=== PATIENT | male | born 1955 | race Caucasian/White ===

== ENCOUNTER 2022-01-18 11:32 | Outpatient (REF) | payer MEDICARE, OTHER, SELFPAY ==
[2022-01-18 13:51] LABS: Alanine Aminotransferase 44 U/L (0-40); Albumin Level 4.5 g/dL (3.5-5.0); Alkaline Phosphatase 78 U/L (39-117); Anion Gap 15 (12-20); Aspartate Amino Transferase 38 U/L (5-37); Bilirubin Total 0.9 mg/dL (0.0-1.0); Blood Urea Nitrogen 20 mg/dL (9-16); Calcium 9.3 mg/dL (8.4-10.2); Carbon Dioxide 28 mmol/L (22-29); Chloride 102 mmol/L (96-108); Estimated Glomerular Filt Rate > 60; Glucose Fasting 110 mg/dL (60-99); Potassium 4.7 mmol/L (3.3-5.1); Sodium 140 mmol/L (135-145); Total Protein 7.7 g/dL (6.5-8.0)
[2022-01-18 13:59] LABS: Estimated Average Glucose 120 mg/dL; Hemoglobin A1c % 5.8 %
== END 2022-01-18 11:33 | disposition home or self-care (01) ==
LOC: HO.10HDL 11:32
PROVIDERS: Visit Provider Internal Medicine
DX: I10 Essential (primary) hypertension (principal); N20.0 Calculus of kidney; R73.9 Hyperglycemia, unspecified
CPT/HCPCS: 36415; 80053; 83036

== ENCOUNTER → 2023-11-18 09:51 | Outpatient (REF) | payer MEDICARE, OTHER, SELFPAY ==
--- NOTE | 2023-11-18 10:10 | HM_ITS ---
* Total monitoring time 10 days. * Underlying rhythm is sinus with an average rate of 78/Min. * Occasional supraventricular ectopy with a burden of 1.2%. * Rare ventricular ectopy with a burden of 0.6%. Few couplets, trigeminy. Multiple morphologies. * No significant pauses or AV blocks. * Patient marker used in association with sinus tachycardia/supraventricular ectopy. * Stress in patient diary correlates with mild sinus tachycardia/PACs/artifact. MTDD
== END ==
LOC: HO.CARD 09:51
PROVIDERS: PCP Internal Medicine; Visit Provider Internal Medicine
DX: G45.4 Transient global amnesia (principal)
CPT/HCPCS: 93242

== ENCOUNTER → 2023-11-18 10:10 | Outpatient (BNV) | payer MEDICARE, OTHER, SELFPAY | PROVIDERS: PCP Internal Medicine; Visit Provider Internal Medicine | DX: I47.10 Supraventricular tachycardia, unspecified (principal); I49.1 Atrial premature depolarization | CPT/HCPCS: 93244 ==

== ENCOUNTER → 2023-12-23 09:43 | Outpatient (REF) | payer MEDICARE, OTHER, SELFPAY | LOC: HO.SL 09:43 | PROVIDERS: PCP Internal Medicine; Visit Provider Internal Medicine | DX: G47.33 Obstructive sleep apnea (adult) (pediatric) (principal) | CPT/HCPCS: 95806 ==

== ENCOUNTER → 2023-12-23 19:00 | Outpatient (BNV) | payer MEDICARE, OTHER, SELFPAY | PROVIDERS: PCP Internal Medicine; Visit Provider Internal Medicine | DX: G47.33 Obstructive sleep apnea (adult) (pediatric) (principal) | CPT/HCPCS: 95806 ==

== ENCOUNTER 2024-02-11 14:11 | Outpatient (AMB) | payer MEDICARE, OTHER, SELFPAY ==
[2024-02-11 14:37] VITALS: BP 110/72; PULSE 82; O2SAT 95; BMI 37.8
--- NOTE | 2024-02-11 14:37 | A.OFFVIS_ITS ---
Vital Signs 02/11/24 14:37 Height 5 ft 11 in Weight 271 lb 2.697 oz BMI 37.8 BP 110/72 Blood Pressure Location Lt brachial Position Sitting Pulse 82 Pulse Source Pulse Oximeter Pulse Oximetry (%) 95 Oxygen Delivery Method Room Air Intake Visit Reasons: christiano Intake Note: pt is here as a new patient for follow up of sleep study, This all started when he went to ER. pt is on BP med but unsure of name. Wind Energy Mechanic Required: No Allergies lisinopril [LISINOPRIL] Allergy (Severe, Unverified 02/11/24 16:12) ANGIOEDEMA latex [LATEX] Allergy (Unknown, Unverified 02/11/24 16:12) UNKNOWN latex Allergy (Unknown, Uncoded 02/11/24 16:12) swelling gets irritated if he leaves bandaid on for a few da Lisinopril-Hydrochlorothiazide Allergy (Unknown, Uncoded 02/11/24 16:12) angioedema Medication List - Last Reconciled 02/11/24 by Angela Green MD hydrochlorothiazide 25 mg PO DAILY losartan 100 mg PO DAILY tamsulosin (Flomax) 0.8 mg PO BEDTIME Do you need a note to return to daycare/school/sports/work: No HPI HPI christiano: Details: This 69 years old gentleman is being seen for the 1st time because of severe obstructive sleep apnea which needs further management. A few months ago while he was driving from [place] back home, he became somewhat confused and forgetful , while driving. He was checked in an emergency room, kept under observation overnight, he was told that he had transitory global amnesia. When he came back home, his primary care physician ordered a home-based sleep study which was done on 12/23/2023. The results showed that he had severe obstructive sleep apnea with total sleep time AHI 44, it was complicated by hypoxemia with average O2 sat during night b eing 88% and his O2 sat below 88% was for 210 minutes. The recommendation was that he should have CPAP titration study in the sleep lab to determine the optimal pressure and also to make sure that hypoxemia is corrected. There has been some delay in follow-up. Patient was referred. To be seen by me He came today with the expectation that I would just go ahead and order the CPAP. At this time he is fully alert and talking relevantly well. He say is that he does sleep about 6 hours every night but, has to wake up every couple hours the due to frequent urination. He denies any sleepiness during the daytime but does have tendency to feel tired in the afternoons. RETROSPECTIVELY HE HAS HISTORY OF SNORING FOR 5-6 YEARS. NOTED ABOVE HIS SLEEP HAS BEEN FRAGMENTED. HE STAYS ACTIVE DURING THE DAYTIME WORKING FOR A [employer]. HE HAS PUT ON SOME WEIGHT BECAUSE HE HAS BEEN EATING BIG LUNCHES WELL ON SOMETIME LARGE PORTIONS AT THE DINNER. DENIES SMOKING OR . DRINKING EXCEPT FOR THE EPISODE OF GLOBAL AMNESIA DESCRIBED ABOVE HE DENIES ANY OTHER NEUROLOGICAL ISSUES. HE DENIES ANY CHRONIC PULMONARY PROBLEMS. ALSO HAS HAD NO CARDIAC PROBLEMS BUT HE IS BEING TREATED FOR HYPERTENSION. [facility] Medical History (Updated 02/11/24 @ 16:26 by Angela Green MD) Nocturnal hypoxemia CHRISTIANO (obstructive sleep apnea) Obesity (BMI 30-39.9) Social History Patient Tobacco Use Status: Never used Tobacco Review of Systems Const All systems reviewed & are unremarkable except as noted in HPI and below Denies headache(s) and Reports snoring Eyes Reports no additional complaints ENT Reports no additional complaints, Denies vertigo and Denies headache(s) Card Denies chest pain, Denies syncope and Denies leg edema Resp Denies cough, Reports snoring and Denies wheezing GI Reports no additional complaints Reports nocturia Musc Reports no additional complaints Skin/Breast Reports system reviewed and no additional complaints, except as documented Neuro Denies vertigo, Denies syncope and Denies headache(s) Psych Reports no additional complaints Endo Reports no additional complaints Kerwin/Lymph Reports no additional complaints Aller/Immun Reports no additional complaints and Denies wheezing Physical Exam Vital Signs: Last Vital Signs Pulse 82 02/11/24 14:37 BP 110/72 02/11/24 14:37 Pulse Ox 95 02/11/24 14:37 Oxygen Delivery Method Room Air 02/11/24 14:37 BMI result Body Mass Index 37.8 Const General: healthy appearing (EXCEPT BEING OVERWEIGHT), comfortable, no acute distress, alert and awake Orientation/consciousness: patient oriented x3 HEENT Head: Yes normal to inspection General nose exam: No nasal polyps present and No nasal discharge present Face and sinus: Yes sinuses nontender Mouth: oropharynx abnormals (OROPHARYNX IS NARROW AND CROWDED, MALLAMPATI CLASS 4) Throat: Yes posterior oropharynx normal Eyes General: appearance normal, both eyes and all related structures Neck Neck: Yes normal visual inspection, Yes no lymphadenopathy, Yes trachea midline, Yes no JVD and Yes other (NECK CIRCUMFERENCE 17-1/2 INCH) Thyroid: Thyroid normal Chest Chest palpation & inspection: normal inspection of the chest, normal palpation of entire chest wall and no tenderness Resp Effort & Inspection: normal respiratory effort Auscultation: clear to auscultation bilaterally, no rhonchi and no wheezes Cardio Palpation: normal PMI Rate: regular rate Rhythm: regular rhythm Heart sounds: no gallops and no murmurs Peripheral pulses: Peripheral pulses 2+ throughout GI Palpation (GI): Soft to palpation, nontender, No hepatosplenomegaly present and no masses Auscultation: normal bowel sounds Back/Spine/Pelvis Thoracic/Lumbar Spine: thoracic and lumbar spine normal to inspection Skin General skin exam: no rashes or lesions noted Neuro General: patient oriented x3 and no focal motor deficits Cranial nerves: Yes CN's II-XII intact bilaterally Extrem General: Yes normal to inspection, Yes no clubbing, cyanosis or edema and Yes no calf tenderness Psych Speech and movement: Normal speech and movement present Results Reviewed Results Reviewed: HOME-BASED SLEEP STUDY ON 12/23/2023 SHOWED THE FOLLOWING TOTAL SLEEP TIME AHI 44 SNORING FOR 29% OF THE SLEEP TIME. NOCTURNAL HYPOXEMIA WITH AVERAGE O2 SAT 88% AND O2 SAT BELOW 88% FOR 210 MINUTE Assessment & Plan Assessment & Plan (1) Obesity (BMI 30-39.9): Comment: HE IS GROSSLY OBESE. THIS HAS BEEN GOING ON FOR THE PAST MANY YEARS. Code(s): E66.9 - Obesity, unspecified Category: Medical Plan: DISCUSSED ABOUT HIS BEING OVERWEIGHT, DIETARY CONTROL AND NEED FOR REGULAR EXERCISE DISCUSSED. ONCE HIS SLEEP APNEA IS TREATED HE WOULD HAVE MORE ENERGY AND O2 START ON A REGULAR EXERCISE PROGRAM. (2) CHRISTIANO (obstructive sleep apnea): Comment: HE HAS RATHER SEVERE DEGREE OF OBSTRUCTIVE SLEEP APNEA. IT IS COMPLICATED BY SLEEP-RELATED HYPOVENTILATION AND HYPOXEMIA. Code(s): G47.33 - Obstructive sleep apnea (adult) (pediatric) Category: Medical Plan: HE NEEDS TO BE STARTED ON DEFINITE IT TREATMENT SOON POSSIBLE. HOWEVER BECAUSE OF PERSISTENT NOCTURNAL HYPOXEMIA HIS BEST THAT HE SHOULD HAVE CPAP TITRATION STUDY IN THE SLEEP LAB. PATIENT NEEDED LOT OF EXPLANATION AND EDUCATION AFTER WHICH HE AGREED TO UNDERGO THE CPAP TITRATION IN THE SLEEP LAB. (3) Nocturnal hypoxemia: Comment: NOTED ABOVE HE DOES HAVE SIGNIFICANT NOCTURNAL HYPOXEMIA DURING HIS SLEEP. HE DOES NOT HAVE ANY UNDERLYING CHRONIC PULMONARY OR CARDIAC DISEASE Code(s): G47.34 - Idiopathic sleep related nonobstructive alveolar hypoventilation Category: Medical Plan: I THINK ONCE HE STARTS CPAP THERAPY HIS HYPOXEMIA WILL BE TREATED FOR THIS REASON HE WILL HAVE CPAP TITRATION STUDY IN THE SLEEP LAB. PATIENT WAS RELUCTANT. TO GO TO THE SLEEP LAB HOWEVER AFTER PROPER COUNSELING AND EDUCATION HE HAS AGREE TO HAVE THIS DONE. Coding Level of Care Code New Pt Level 4 (09817) Diagnoses Obesity (BMI 30-39.9) E66.9 CHRISTIANO (obstructive sleep apnea) G47.33 Nocturnal hypoxemia G47.34
== END 2024-02-11 15:21 | disposition home or self-care (01) ==
PROVIDERS: PCP Internal Medicine; Visit Provider Internal Medicine
DX: G47.33 Obstructive sleep apnea (adult) (pediatric) (principal); G47.34 Idiopathic sleep related nonobstructive alveolar hypoventilation; E66.9 Obesity, unspecified; Z68.37 Body mass index [BMI] 37.0-37.9, adult
CPT/HCPCS: 99214

== ENCOUNTER → 2024-02-11 14:11 | Outpatient (BNVA) | payer MEDICARE, OTHER, SELFPAY | PROVIDERS: PCP Internal Medicine; Visit Provider Internal Medicine | DX: G47.33 Obstructive sleep apnea (adult) (pediatric) (principal); G47.34 Idiopathic sleep related nonobstructive alveolar hypoventilation; E66.9 Obesity, unspecified; Z68.37 Body mass index [BMI] 37.0-37.9, adult | CPT/HCPCS: 99212 ==

== ENCOUNTER → 2024-02-16 19:30 | Outpatient (BNV) | payer MEDICARE, OTHER, SELFPAY | PROVIDERS: PCP Internal Medicine; Visit Provider Internal Medicine | DX: G47.33 Obstructive sleep apnea (adult) (pediatric) (principal) | CPT/HCPCS: 95811 ==

== ENCOUNTER → 2024-02-16 19:30 | Outpatient (REF) | payer MEDICARE, OTHER, SELFPAY | LOC: HO.SL 19:30 | PROVIDERS: PCP Internal Medicine; Visit Provider Internal Medicine | DX: G47.33 Obstructive sleep apnea (adult) (pediatric) (principal) | CPT/HCPCS: 95811 ==

== ENCOUNTER 2024-05-17 15:48 | Outpatient (AMB) | payer MEDICARE, OTHER, SELFPAY ==
[2024-05-17 15:50] VITALS: BP 112/58; PULSE 82; O2SAT 95; BMI 37.1
--- NOTE | 2024-05-17 15:50 | MHC.OFFVIS ---
Vital Signs 05/17/24 15:50 Height 5 ft 11 in Weight 266 lb 4.334 oz BMI 37.1 BP 112/58 L Blood Pressure Location Rt brachial Position Sitting Pulse 82 Pulse Source Doppler Pulse Oximetry (%) 95 Oxygen Delivery Method Room Air Intake Visit Reasons: christiano Allergies lisinopril [LISINOPRIL] Allergy (Severe, Unverified 05/17/24 16:14) ANGIOEDEMA latex [LATEX] Allergy (Unknown, Unverified 05/17/24 16:14) UNKNOWN latex Allergy (Unknown, Uncoded 05/17/24 16:14) swelling gets irritated if he leaves bandaid on for a few da Lisinopril-Hydrochlorothiazide Allergy (Unknown, Uncoded 05/17/24 16:14) angioedema Medication List - Last Reconciled 05/17/24 by Angela Green MD hydrochlorothiazide 25 mg PO DAILY losartan 100 mg PO DAILY tamsulosin (Flomax) 0.8 mg PO BEDTIME Do you need a note to return to daycare/school/sports/work: No HPI HPI christiano: Details: THIS 69 YEARS OLD VERY PLEASANT GENTLEMAN WITH GROSS OBESITY, BMI= 37.1. RECENTLY DIAGNOSIS OF OBSTRUCTIVE SLEEP APNEA WAS CONFIRMED, HE UNDERWENT CPAP TITRATION STUDY, AND HAS BEEN STARTED ON BIPAP WITH PRESSURE SETTING OF 20/16 CM USING A FULLFACE MASK. HE IS TRYING HIS BEST TO USE THE MASK EVERY NIGHT. HOWEVER HE CAN NOT USE IT FOR MORE THAN 4 HOURS BECAUSE IN THE MIDDLE OF THE NIGHT THE AIR LEAK AND VIBRATIONS OF THE MASK START BOTHERING HIM AND WAKE HIM UP. HE WAS GIVEN FULLFACE MASK OF MEDIUM SIZE, . IT IS NOT FITTING WELL HE IS DESPERATELY LOOKING FOR A BETTER FITTING MASK. OTHERWISE HE HAS BEEN FEELING WELL AND THERE HAS BEEN NO EPISODE OF AMNESIA. HE PLANS TO RETIRE AT THE END OF THIS MONTH, AND THEN WILL DEVOTE MORE TIME IN WALKING AND EXERCISING. [facility] Medical History Nocturnal hypoxemia CHRISTIANO (obstructive sleep apnea) Obesity (BMI 30-39.9) Social History Patient Tobacco Use Status: Never used Tobacco Review of Systems Const All systems reviewed & are unremarkable except as noted in HPI and below Denies headache(s) and Reports snoring Eyes Reports no additional complaints ENT Reports no additional complaints, Denies vertigo and Denies headache(s) Card Denies chest pain, Denies syncope and Denies leg edema Resp Denies cough, Reports snoring and Denies wheezing GI Reports no additional complaints Reports nocturia Musc Reports no additional complaints Skin/Breast Reports system reviewed and no additional complaints, except as documented Neuro Denies vertigo, Denies syncope and Denies headache(s) Psych Reports no additional complaints Endo Reports no additional complaints Kerwin/Lymph Reports no additional complaints Aller/Immun Reports no additional complaints and Denies wheezing Physical Exam Vital Signs: Last Vital Signs Pulse 82 05/17/24 15:50 BP 112/58 L 05/17/24 15:50 Pulse Ox 95 05/17/24 15:50 Oxygen Delivery Method Room Air 05/17/24 15:50 BMI result Body Mass Index 37.1 Const General: healthy appearing (EXCEPT BEING OVERWEIGHT), comfortable, no acute distress, alert and awake Orientation/consciousness: patient oriented x3 HEENT Head: Yes normal to inspection General nose exam: No nasal polyps present and No nasal discharge present Face and sinus: Yes sinuses nontender Mouth: oropharynx abnormals (OROPHARYNX IS NARROW AND CROWDED, MALLAMPATI CLASS 4) Throat: Yes posterior oropharynx normal Eyes General: appearance normal, both eyes and all related structures Neck Neck: Yes normal visual inspection, Yes no lymphadenopathy, Yes trachea midline, Yes no JVD and Yes other (NECK CIRCUMFERENCE 17-1/2 INCH) Thyroid: Thyroid normal Chest Chest palpation & inspection: normal inspection of the chest, normal palpation of entire chest wall and no tenderness Resp Effort & Inspection: normal respiratory effort Auscultation: clear to auscultation bilaterally, no rhonchi and no wheezes Cardio Palpation: normal PMI Rate: regular rate Rhythm: regular rhythm Heart sounds: no gallops and no murmurs Peripheral pulses: Peripheral pulses 2+ throughout GI Palpation (GI): Soft to palpation, nontender, No hepatosplenomegaly present and no masses Auscultation: normal bowel sounds Back/Spine/Pelvis Thoracic/Lumbar Spine: thoracic and lumbar spine normal to inspection Skin General skin exam: no rashes or lesions noted Neuro General: patient oriented x3 and no focal motor deficits Cranial nerves: Yes CN's II-XII intact bilaterally Extrem General: Yes normal to inspection, Yes no clubbing, cyanosis or edema and Yes no calf tenderness Psych Speech and movement: Normal speech and movement present Results Reviewed Results Reviewed: THE RESULTS OF CPAP TITRATION STUDY REVIEWED WITH PATIENT. COMPLIANCE REPORT COULD NOT BE DOWNLOADED . Assessment & Plan Assessment & Plan (1) Obesity (BMI 30-39.9): Comment: HE IS GROSSLY OBESE. THIS HAS BEEN GOING ON FOR THE PAST MANY YEARS. Code(s): E66.9 - Obesity, unspecified Category: Medical Plan: TALKED TO HIM ABOUT THE IMPORTANCE OF LOSING WEIGHT. HE PLANS TO RETIRE AT THE END OF THIS MONTH AND THEN DEVOTE MORE TIME IN WALKING, AND ALSO HE WILL BE ABLE TO AVOID EATING EXTRA AND JUNK TYPE OF FOODS, HE WILL NOT BE TRAVELING MUCH. (2) CHRISTIANO (obstructive sleep apnea): Comment: HE HAS RATHER SEVERE DEGREE OF OBSTRUCTIVE SLEEP APNEA. IT IS COMPLICATED BY SLEEP-RELATED HYPOVENTILATION AND HYPOXEMIA. AFTER CPAP TITRATION STUDY HE HAS BEEN STARTED ON BILEVEL CPAP WITH PRESSURE SETTING OF 20/16 CM. HE IS HAVING PROBLEM WITH THE MASK AND ALSO FEELS THAT THE PRESSURE IS TOO HIGH . Code(s): G47.33 - Obstructive sleep apnea (adult) (pediatric) Category: Medical Plan: ADVISED TO CONTACT THE DME PROVIDER, [facility] AND ATTEND THE WEEKLY CLINIC A FEW TIMES. WE WILL CONTACT [facility] OFFICE AND ADVISE THEM TO PROVIDE HIM A BETTER FITTING FACEMASK , MOST PROBABLY HE WILL DO WELL WITH A DREAMWEAR/ AIRFIT TYPE OF MASK. I DISCUSSED WITH HIM THAT HE HAS TO GO THROUGH SOME LEARNING CURVE, HE HAS TO GET USED TO WEARING THE MASK AND USING BIPAP EVERY NIGHT AT LEAST FOR 4-5 HOURS PER NIGHT. (3) Nocturnal hypoxemia: Comment: NOTED ABOVE HE DOES HAVE SIGNIFICANT NOCTURNAL HYPOXEMIA DURING HIS SLEEP. HE DOES NOT HAVE ANY UNDERLYING CHRONIC PULMONARY OR CARDIAC DISEASE IN THE TITRATION STUDY WITH THE USE OF FACE MASK AND PRESSURE OF 20/16 CM , THERE REMAINED NO RESIDUAL HYPOXEMIA. Code(s): G47.34 - Idiopathic sleep related nonobstructive alveolar hypoventilation Category: Medical Plan: CONTINUED PROPER USE OF THE BIPAP IS NEEDED TO ELIMINATE NOCTURNAL HYPOXEMIA. Coding Level of Care Code Est Pt Level 3 (93268) Diagnoses Obesity (BMI 30-39.9) E66.9 CHRISTIANO (obstructive sleep apnea) G47.33 Nocturnal hypoxemia G47.34
== END 2024-05-17 16:29 | disposition home or self-care (01) ==
PROVIDERS: PCP Internal Medicine; Visit Provider Internal Medicine
DX: E66.9 Obesity, unspecified (principal); G47.33 Obstructive sleep apnea (adult) (pediatric); G47.34 Idiopathic sleep related nonobstructive alveolar hypoventilation
CPT/HCPCS: 99213

== ENCOUNTER → 2024-05-17 15:48 | Outpatient (BNVA) | payer MEDICARE, OTHER, SELFPAY | PROVIDERS: PCP Internal Medicine; Visit Provider Internal Medicine | DX: E66.01 Morbid (severe) obesity due to excess calories (principal); G47.33 Obstructive sleep apnea (adult) (pediatric); G47.34 Idiopathic sleep related nonobstructive alveolar hypoventilation; Z68.37 Body mass index [BMI] 37.0-37.9, adult | CPT/HCPCS: 99212 ==

== ENCOUNTER 2024-07-21 10:07 | Outpatient (AMB) | payer MEDICARE, OTHER, SELFPAY ==
[2024-07-21 10:17] VITALS: BP 130/64; PULSE 51; O2SAT 94; BMI 36.9
--- NOTE | 2024-07-21 10:17 | MHC.OFFVIS ---
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: No Allergies lisinopril [LISINOPRIL] Allergy (Severe, Unverified 07/21/24 10:42) ANGIOEDEMA latex [LATEX] Allergy (Unknown, Unverified 07/21/24 10:42) UNKNOWN latex Allergy (Unknown, Uncoded 07/21/24 10:42) swelling gets irritated if he leaves bandaid on for a few da Lisinopril-Hydrochlorothiazide Allergy (Unknown, Uncoded 07/21/24 10:42) angioedema Medication List - Last Reconciled 07/21/24 by Angela Green MD hydrochlorothiazide 25 mg PO DAILY losartan 100 mg PO DAILY tamsulosin (Flomax) 0.8 mg PO BEDTIME Do you need a note to return to daycare/school/sports/work: No HPI HPI Obstructive sleep apnea: Details: THIS 69 YEARS OLD VERY PLEASANT GENTLEMAN IS A CASE OF OBESITY AND OBSTRUCTIVE SLEEP APNEA, PER HIS INITIAL CPAP TITRATION HE HAS BEEN USING BILEVEL PRESSURES ( BIPAP ) INITIALLY IT WAS 20/18 CM, ON HIS LAST VISIT IT WAS CUT DOWN TO 18/16 CM. HE IS USING CPAP REGULARLY EVERY NIGHT. STILL COMPLAINS THAT HIS MASK IS NOT VERY COMFORTABLE. HE USES FULLFACE MASK OF MEDIUM SIZE, AND DEVELOP SOME DISCOMFORT IN NASAL BRIDGE AREA DURING THE NIGHT. HE ALSO FEELS THAT THE PRESSURE IS STILL LITTLE HIGH AND HE CAN HEAR SOME AIR LEAKAGE. HE IS NOW RETIRED AND DEVOTING MORE TIME FOR WALKING EVERY DAY, HE HAS LOST SOME WEIGHT. [facility] Medical History Nocturnal hypoxemia JESSICA (obstructive sleep apnea) Obesity (BMI 30-39.9) Social History Patient Tobacco Use Status: Never used Tobacco Review of Systems Const All systems reviewed & are unremarkable except as noted in HPI and below Denies headache(s) and Reports snoring Eyes Reports no additional complaints ENT Reports no additional complaints, Denies vertigo and Denies headache(s) Card Denies chest pain, Denies syncope and Denies leg edema Resp Denies cough, Reports snoring and Denies wheezing GI Reports no additional complaints Reports nocturia Musc Reports no additional complaints Skin/Breast Reports system reviewed and no additional complaints, except as documented Neuro Denies vertigo, Denies syncope and Denies headache(s) Psych Reports no additional complaints Endo Reports no additional complaints Kerwin/Lymph Reports no additional complaints Aller/Immun Reports no additional complaints and Denies wheezing Physical Exam Vital Signs: Last Vital Signs Pulse 51 07/21/24 10:17 BP 130/64 07/21/24 10:17 Pulse Ox 94 07/21/24 10:17 Oxygen Delivery Method Room Air 07/21/24 10:17 BMI result Body Mass Index 36.9 Const General: healthy appearing (EXCEPT BEING OVERWEIGHT), comfortable, no acute distress, alert and awake Orientation/consciousness: patient oriented x3 HEENT Head: Yes normal to inspection General nose exam: No nasal polyps present and No nasal discharge present Face and sinus: Yes sinuses nontender Mouth: oropharynx abnormals (OROPHARYNX IS NARROW AND CROWDED, MALLAMPATI CLASS 4) Throat: Yes posterior oropharynx normal Eyes General: appearance normal, both eyes and all related structures Neck Neck: Yes normal visual inspection, Yes no lymphadenopathy, Yes trachea midline, Yes no JVD and Yes other (NECK CIRCUMFERENCE 17-1/2 INCH) Thyroid: Thyroid normal Chest Chest palpation & inspection: normal inspection of the chest, normal palpation of entire chest wall and no tenderness Resp Effort & Inspection: normal respiratory effort Auscultation: clear to auscultation bilaterally, no rhonchi and no wheezes Cardio Palpation: normal PMI Rate: regular rate Rhythm: regular rhythm Heart sounds: no gallops and no murmurs Peripheral pulses: Peripheral pulses 2+ throughout GI Palpation (GI): Soft to palpation, nontender, No hepatosplenomegaly present and no masses Auscultation: normal bowel sounds Back/Spine/Pelvis Thoracic/Lumbar Spine: thoracic and lumbar spine normal to inspection Skin General skin exam: no rashes or lesions noted Neuro General: patient oriented x3 and no focal motor deficits Cranial nerves: Yes CN's II-XII intact bilaterally Extrem General: Yes normal to inspection, Yes no clubbing, cyanosis or edema and Yes no calf tenderness Psych Speech and movement: Normal speech and movement present Results Reviewed Results Reviewed: COMPLIANCE REPORT IS REVIEWED. HE IS VERY COMPLIANT AND HAS USED 100% OF THE NIGHTS. AVERAGE USE IT PER NIGHT 5 HOURS 19 MINUTES. HE IS ON BILEVEL PRESSURE OF 18/16 CM. THERE IS MILD TO MODERATE DEGREE OF AIR LEAK. RESIDUAL AHI 1.3 Assessment & Plan Assessment & Plan (1) Obesity (BMI 30-39.9): Comment: HE IS GROSSLY OBESE. THIS HAS BEEN GOING ON FOR THE PAST MANY YEARS. NOW THAT HE IS RETIRED HE IS TRYING TO WALK MORE, AND IS LOSING WEIGHT SLOWLY. Code(s): E66.9 - Obesity, unspecified Category: Medical Plan: ENCOURAGED TO WALK ABOUT 2 MILES EVERY DAY, DISCUSSED ABOUT THE DIET, AND ENCOURAGED TO KEEP ON LOSING MORE WEIGHT. (2) Nocturnal hypoxemia: Comment: NOTED ABOVE HE DID HAVE SIGNIFICANT NOCTURNAL HYPOXEMIA DURING HIS SLEEP. HE DOES NOT HAVE ANY UNDERLYING CHRONIC PULMONARY OR CARDIAC DISEASE IN THE TITRATION STUDY WITH THE USE OF FACE MASK AND PRESSURE OF 20/16 CM , THE HYPOXEMIA HAD COMPLETELY RESOLVED. Code(s): G47.34 - Idiopathic sleep related nonobstructive alveolar hypoventilation Category: Medical Plan: NO NEED OF SUPPLEMENTAL OXYGEN (3) JESSICA (obstructive sleep apnea): Comment: HE HAS RATHER SEVERE DEGREE OF OBSTRUCTIVE SLEEP APNEA. IT IS COMPLICATED BY SLEEP-RELATED HYPOVENTILATION AND HYPOXEMIA. AFTER CPAP TITRATION STUDY HE HAS BEEN STARTED ON BILEVEL CPAP WITH PRESSURE SETTING OF 20/16 CM. HE IS HAVING PROBLEM WITH THE MASK AND ALSO FEELS THAT THE PRESSURE IS TOO HIGH . ON HIS LAST VISIT PRESSURE WAS REDUCED TO 18/16 CM, . HE STILL THINKS IS TOO HIGH Code(s): G47.33 - Obstructive sleep apnea (adult) (pediatric) Category: Medical Plan: WILL SEND AN ORDER FOR A NEW FULLFACE MASK OF MEDIUM SIZE WITH FORM LINING . WILL REDUCE THE PRESSURE DOWN TO 16/12 CM Coding Level of Care Code Est Pt Level 3 (58311) Diagnoses Obesity (BMI 30-39.9) E66.9 Nocturnal hypoxemia G47.34 JESSICA (obstructive sleep apnea) G47.33
== END 2024-07-21 10:43 | disposition home or self-care (01) ==
PROVIDERS: PCP Internal Medicine; Visit Provider Internal Medicine
DX: E66.9 Obesity, unspecified (principal); G47.34 Idiopathic sleep related nonobstructive alveolar hypoventilation; G47.33 Obstructive sleep apnea (adult) (pediatric)
CPT/HCPCS: 99213

== ENCOUNTER → 2024-07-21 10:07 | Outpatient (BNVA) | payer MEDICARE, OTHER, SELFPAY | PROVIDERS: PCP Internal Medicine; Visit Provider Internal Medicine | DX: G47.33 Obstructive sleep apnea (adult) (pediatric) (principal); E66.9 Obesity, unspecified; G47.34 Idiopathic sleep related nonobstructive alveolar hypoventilation; Z99.89 Dependence on other enabling machines and devices; Z68.36 Body mass index [BMI] 36.0-36.9, adult | CPT/HCPCS: 99212 ==

== ENCOUNTER 2024-10-20 10:12 | Outpatient (AMB) | payer MEDICARE, OTHER, SELFPAY ==
--- NOTE | 2024-10-20 10:24 | MHC.OFFVIS ---
Vital Signs 10/20/24 10:25 Height 5 ft 11 in Weight 263 lb 7.238 oz BMI 36.7 BP 120/80 Blood Pressure Location Lt brachial Position Sitting Pulse 51 Pulse Source Pulse Oximeter Pulse Oximetry (%) 96 Oxygen Delivery Method Room Air Intake Visit Reasons: Obstructive sleep apnea Intake Note: pt is here for christiano follow up Dental Hygienist Mobile Coordinator Required: No Allergies lisinopril [LISINOPRIL] Allergy (Severe, Unverified 10/20/24 10:34) ANGIOEDEMA latex [LATEX] Allergy (Unknown, Unverified 10/20/24 10:34) UNKNOWN latex Allergy (Unknown, Uncoded 10/20/24 10:34) swelling gets irritated if he leaves bandaid on for a few da Lisinopril-Hydrochlorothiazide Allergy (Unknown, Uncoded 10/20/24 10:34) angioedema Medication List - Last Reconciled 10/20/24 by Angela Grene MD hydrochlorothiazide 25 mg PO DAILY losartan 100 mg PO DAILY tamsulosin (Flomax) 0.8 mg PO BEDTIME Do you need a note to return to daycare/school/sports/work: No HPI HPI Obstructive sleep apnea: Details: THIS 69 YEARS OLD GENTLEMAN WITH GROSS OBESITY AND OBSTRUCTIVE SLEEP APNEA IS HERE FOR 4 MONTHS FOLLOW-UP. ON HIS LAST VISIT WE DOWN ADJUSTED THE PRESSURE TO 16/12 CM, AND HE FINDS IT MORE COMFORTABLE. THE CURRENT FULLFACE MASK WITH GOOD LINING HAS BEEN MORE COMFORTABLE FOR HIM. HE HAS BEEN USING THE CPAP EVERY NIGHT SLEEPING ABOUT 4-5 HOURS PER NIGHT. HIS SLEEP GETS INTERRUPTED BECAUSE OF BPH AND URGE TO GO TO THE BATHROOM. BUT HE DENIES ANY DAYTIME SLEEPINESS. HE DOES WALK DAILY BUT HAS NOT BEEN ABLE TO LOSE MUCH WEIGHT. [facility] Medical History Nocturnal hypoxemia CHRISTIANO (obstructive sleep apnea) Obesity (BMI 30-39.9) Social History Patient Tobacco Use Status: Never used Tobacco Review of Systems Const All systems reviewed & are unremarkable except as noted in HPI and below Denies headache(s) and Reports snoring Eyes Reports no additional complaints ENT Reports no additional complaints, Denies vertigo and Denies headache(s) Card Denies chest pain, Denies syncope and Denies leg edema Resp Denies cough, Reports snoring and Denies wheezing GI Reports no additional complaints Reports nocturia Musc Reports no additional complaints Skin/Breast Reports system reviewed and no additional complaints, except as documented Neuro Denies vertigo, Denies syncope and Denies headache(s) Psych Reports no additional complaints Endo Reports no additional complaints Kerwin/Lymph Reports no additional complaints Aller/Immun Reports no additional complaints and Denies wheezing Physical Exam Vital Signs: Last Vital Signs Pulse 51 10/20/24 10:25 BP 120/80 10/20/24 10:25 Pulse Ox 96 10/20/24 10:25 Oxygen Delivery Method Room Air 10/20/24 10:25 BMI result Body Mass Index 36.7 Const General: healthy appearing (EXCEPT BEING OVERWEIGHT), comfortable, no acute distress, alert and awake Orientation/consciousness: patient oriented x3 HEENT Head: Yes normal to inspection General nose exam: No nasal polyps present and No nasal discharge present Face and sinus: Yes sinuses nontender Mouth: oropharynx abnormals (OROPHARYNX IS NARROW AND CROWDED, MALLAMPATI CLASS 4) Throat: Yes posterior oropharynx normal Eyes General: appearance normal, both eyes and all related structures Neck Neck: Yes normal visual inspection, Yes no lymphadenopathy, Yes trachea midline, Yes no JVD and Yes other (NECK CIRCUMFERENCE 17-1/2 INCH) Thyroid: Thyroid normal Chest Chest palpation & inspection: normal inspection of the chest, normal palpation of entire chest wall and no tenderness Resp Effort & Inspection: normal respiratory effort Auscultation: clear to auscultation bilaterally, no rhonchi and no wheezes Cardio Palpation: normal PMI Rate: regular rate Rhythm: regular rhythm Heart sounds: no gallops and no murmurs Peripheral pulses: Peripheral pulses 2+ throughout GI Palpation (GI): Soft to palpation, nontender, No hepatosplenomegaly present and no masses Auscultation: normal bowel sounds Back/Spine/Pelvis Thoracic/Lumbar Spine: thoracic and lumbar spine normal to inspection Skin General skin exam: no rashes or lesions noted Neuro General: patient oriented x3 and no focal motor deficits Cranial nerves: Yes CN's II-XII intact bilaterally Extrem General: Yes normal to inspection, Yes no clubbing, cyanosis or edema and Yes no calf tenderness Psych Speech and movement: Normal speech and movement present Results Reviewed Results Reviewed: COMPLIANCE REPORT FOR THE LAST 30 NIGHTS IS REVIEWED. HE HAS USED 100% OF THE NIGHTS. AVERAGE USE IT PER NIGHT IS 5 HOURS 28 MINUTES. NO SIGNIFICANT AIR LEAK NOTED. RESIDUAL AHI 0.7 Assessment & Plan Assessment & Plan (1) CHRISTIANO (obstructive sleep apnea): Comment: HE HAS RATHER SEVERE DEGREE OF OBSTRUCTIVE SLEEP APNEA. IT IS COMPLICATED BY SLEEP-RELATED HYPOVENTILATION AND HYPOXEMIA. AFTER CPAP TITRATION STUDY HE HAS BEEN STARTED ON BILEVEL CPAP WITH PRESSURE SETTING OF 20/16 CM.. THE PRESSURE NOW DOWN TO 16/12 CM HE FEELS MORE COMFORTABLE WITH THIS PRESSURE. HIS COMPLIANCE IS EXCELLENT WITH GOOD RESULTS. Code(s): G47.33 - Obstructive sleep apnea (adult) (pediatric) Category: Medical Plan: COMMENDED FOR GOOD COMPLIANCE AND ADVISED TO KEEP ON USING BILEVEL CPAP EVERY NIGHT. (2) Nocturnal hypoxemia: Comment: NOTED ABOVE HE DID HAVE SIGNIFICANT NOCTURNAL HYPOXEMIA DURING HIS SLEEP. HE DOES NOT HAVE ANY UNDERLYING CHRONIC PULMONARY OR CARDIAC DISEASE IN THE TITRATION STUDY WITH THE USE OF FACE MASK AND PRESSURE OF 20/16 CM , THE HYPOXEMIA HAD COMPLETELY RESOLVED. Code(s): G47.34 - Idiopathic sleep related nonobstructive alveolar hypoventilation Category: Medical Plan: SO THERE IS NO NEED TO PUT HIM ON ANY O2 SUPPLEMENTATION. (3) Obesity (BMI 30-39.9): Comment: HE IS GROSSLY OBESE. THIS HAS BEEN GOING ON FOR THE PAST MANY YEARS. NOW THAT HE IS RETIRED HE IS TRYING TO WALK MORE, AND IS LOSING WEIGHT SLOWLY. Code(s): E66.9 - Obesity, unspecified Category: Medical Plan: AGAIN DISCUSSED ABOUT NEED TO CONTROL HIS DIET AND ALSO DO DAILY EXERCISES SUCH BRISK WALKING. Coding Level of Care Code Est Pt Level 3 (20009) Diagnoses CHRISTIANO (obstructive sleep apnea) G47.33 Nocturnal hypoxemia G47.34 Obesity (BMI 30-39.9) E66.9
[2024-10-20 10:25] VITALS: BP 120/80; PULSE 51; O2SAT 96; BMI 36.7
== END 2024-10-20 10:47 | disposition home or self-care (01) ==
LOC: HO.HPS 10:13
PROVIDERS: PCP Internal Medicine; Visit Provider Internal Medicine
DX: G47.33 Obstructive sleep apnea (adult) (pediatric) (principal); G47.34 Idiopathic sleep related nonobstructive alveolar hypoventilation; E66.9 Obesity, unspecified
CPT/HCPCS: 99213

== ENCOUNTER → 2024-10-20 10:12 | Outpatient (BNVA) | payer MEDICARE, OTHER, SELFPAY | PROVIDERS: PCP Internal Medicine; Visit Provider Internal Medicine | DX: G47.33 Obstructive sleep apnea (adult) (pediatric) (principal); G47.34 Idiopathic sleep related nonobstructive alveolar hypoventilation; E66.9 Obesity, unspecified; Z68.36 Body mass index [BMI] 36.0-36.9, adult | CPT/HCPCS: 99212 ==

== ENCOUNTER 2025-02-08 09:43 | Outpatient (AMB) | payer MEDICARE, OTHER, SELFPAY ==
--- NOTE | 2025-02-08 09:48 | MHC.OFFVIS ---
Vital Signs 02/08/25 09:49 Height 5 ft 11 in Weight 267 lb 13.786 oz BMI 37.4 BP 140/70 H Blood Pressure Location Lt brachial Position Sitting Pulse 53 Pulse Source Pulse Oximeter Pulse Oximetry (%) 95 Oxygen Delivery Method Room Air Intake Visit Reasons: Obstructive sleep apnea Intake Note: pt is here for follow up of JESSICA and states he wakes up with air leaks. Harvest Worker Required: No Allergies lisinopril (LISINOPRIL) Allergy (Severe, Unverified 02/08/25 10:11) ANGIOEDEMA latex (LATEX) Allergy (Unknown, Unverified 02/08/25 10:11) UNKNOWN latex Allergy (Unknown, Uncoded 02/08/25 10:11) swelling gets irritated if he leaves bandaid on for a few da Lisinopril-Hydrochlorothiazide Allergy (Unknown, Uncoded 02/08/25 10:11) angioedema Medication List - Last Reconciled 02/08/25 by Angela Green MD hydrochlorothiazide 25 mg PO DAILY losartan 100 mg PO DAILY tamsulosin (Flomax) 0.8 mg PO BEDTIME Do you need a note to return to daycare/school/sports/work: No HPI HPI Obstructive sleep apnea: Details: Valentino is 70 years old gentleman, retired , moderately obese, case of obstructive sleep apnea, comes for his 6 months follow-up. He is being treated for hypertension, as well as BPH. Complains of edema around the ankles especially in the afternoon, and also complains of brief lightheadedness when he stands up. Because of BPH he wakes up about once per night. To go to the bathroom He is now walking 2-3 miles every day. Trying to watch his diet but has not been able to lose much weight. He is due to see his primary care physician, for blood pressure checkup and for having complete lab tests. As far as CPAP is concerned he uses it religiously every night and sleeps good. He feels that there is some air leak but his compliance report does not show any significant leakage. [facility], [facility] Medical History Nocturnal hypoxemia JESSICA (obstructive sleep apnea) Obesity (BMI 30-39.9) Social History Patient Tobacco Use Status: Never used Tobacco Review of Systems Const All systems reviewed & are unremarkable except as noted in HPI and below Denies headache(s) and Reports snoring Eyes Reports no additional complaints ENT Reports no additional complaints, Denies vertigo and Denies headache(s) Card Denies chest pain, Denies syncope and Denies leg edema Resp Denies cough, Reports snoring and Denies wheezing GI Reports no additional complaints Reports nocturia Musc Reports no additional complaints Skin/Breast Reports system reviewed and no additional complaints, except as documented Neuro Denies vertigo, Denies syncope and Denies headache(s) Psych Reports no additional complaints Endo Reports no additional complaints Kerwin/Lymph Reports no additional complaints Aller/Immun Reports no additional complaints and Denies wheezing Physical Exam Vital Signs: Last Vital Signs Pulse 53 02/08/25 09:49 BP 140/70 H 02/08/25 09:49 Pulse Ox 95 02/08/25 09:49 Oxygen Delivery Method Room Air 02/08/25 09:49 BMI result Body Mass Index 37.4 Const General: healthy appearing (EXCEPT BEING OVERWEIGHT), comfortable, no acute distress, alert and awake Orientation/consciousness: patient oriented x3 HEENT Head: Yes normal to inspection General nose exam: No nasal polyps present and No nasal discharge present Face and sinus: Yes sinuses nontender Mouth: oropharynx abnormals (OROPHARYNX IS NARROW AND CROWDED, MALLAMPATI CLASS 4) Throat: Yes posterior oropharynx normal Eyes General: appearance normal, both eyes and all related structures Neck Neck: Yes normal visual inspection, Yes no lymphadenopathy, Yes trachea midline, Yes no JVD and Yes other (NECK CIRCUMFERENCE 17-1/2 INCH) Thyroid: Thyroid normal Chest Chest palpation & inspection: normal inspection of the chest, normal palpation of entire chest wall and no tenderness Resp Effort & Inspection: normal respiratory effort Auscultation: clear to auscultation bilaterally, no rhonchi and no wheezes Cardio Palpation: normal PMI Rate: regular rate Rhythm: regular rhythm Heart sounds: no gallops and no murmurs Peripheral pulses: Peripheral pulses 2+ throughout GI Palpation (GI): Soft to palpation, nontender, No hepatosplenomegaly present and no masses Auscultation: normal bowel sounds Back/Spine/Pelvis Thoracic/Lumbar Spine: thoracic and lumbar spine normal to inspection Skin General skin exam: no rashes or lesions noted Neuro General: patient oriented x3 and no focal motor deficits Cranial nerves: Yes CN's II-XII intact bilaterally Extrem General: Yes normal to inspection, Yes no clubbing, cyanosis or edema, Yes no calf tenderness and Yes edema (There is a trace of pitting a rim around the lower 1/2 of the legs) Psych Appearance: grossly normal and well kempt Speech and movement: Normal speech and movement present Results Reviewed Results Reviewed: Compliance report shows that he has used 30/30 nights with pressure setting of 16/12 cm. Average use it per night 5 hours 21 minutes. There is no significant air leak and residual AHI 0.3. Assessment & Plan Assessment & Plan (1) Obesity (BMI 30-39.9): Comment: HE IS GROSSLY OBESE. THIS HAS BEEN GOING ON FOR THE PAST MANY YEARS. NOW THAT HE IS RETIRED HE IS TRYING TO WALK MORE, AND IS TRYING TO LOSE WEIGHT SLOWLY. Code(s): E66.9 - Obesity, unspecified Category: Medical Plan: ENCOURAGED TO KEEP ON WALKING ABOUT 3 MILES DAILY AND ALSO TRY TO LIMIT THE CALORIES INTAKE. (2) JESSICA (obstructive sleep apnea): Comment: HE HAS RATHER SEVERE DEGREE OF OBSTRUCTIVE SLEEP APNEA. IT IS COMPLICATED BY SLEEP-RELATED HYPOVENTILATION AND HYPOXEMIA. AFTER CPAP TITRATION STUDY HE HAS BEEN STARTED ON BILEVEL CPAP WITH PRESSURE SETTING OF 20/16 CM.. THE PRESSURE NOW DOWN TO 16/12 CM HE FEELS MORE COMFORTABLE WITH THIS PRESSURE. HIS COMPLIANCE IS EXCELLENT WITH GOOD RESULTS. Code(s): G47.33 - Obstructive sleep apnea (adult) (pediatric) Category: Medical Plan: COMMENDED FOR GOOD COMPLIANCE AND ADVISED TO CONTINUE USING CPAP REGULARLY . (3) Nocturnal hypoxemia: Comment: NOTED ABOVE HE DID HAVE SIGNIFICANT NOCTURNAL HYPOXEMIA DURING HIS SLEEP. HE DOES NOT HAVE ANY UNDERLYING CHRONIC PULMONARY OR CARDIAC DISEASE IN THE TITRATION STUDY WITH THE USE OF FACE MASK AND PRESSURE OF 20/16 CM , THE HYPOXEMIA HAD COMPLETELY RESOLVED. Code(s): G47.34 - Idiopathic sleep related nonobstructive alveolar hypoventilation Category: Medical Plan: THERE IS NO NEED OF ADDING OXYGEN TO THE CPAP . Coding Level of Care Code Est Pt Level 3 (33067) Diagnoses Obesity (BMI 30-39.9) E66.9 JESSICA (obstructive sleep apnea) G47.33 Nocturnal hypoxemia G47.34
[2025-02-08 09:49] VITALS: BP 140/70; PULSE 53; O2SAT 95; BMI 37.4
== END 2025-02-08 10:11 | disposition home or self-care (01) ==
LOC: HO.HPS 09:43
PROVIDERS: PCP Internal Medicine; Visit Provider Internal Medicine
DX: E66.9 Obesity, unspecified (principal); G47.33 Obstructive sleep apnea (adult) (pediatric); G47.34 Idiopathic sleep related nonobstructive alveolar hypoventilation
CPT/HCPCS: 99213

== ENCOUNTER → 2025-02-08 09:43 | Outpatient (BNVA) | payer MEDICARE, OTHER, SELFPAY | PROVIDERS: PCP Internal Medicine; Visit Provider Internal Medicine | DX: G47.34 Idiopathic sleep related nonobstructive alveolar hypoventilation (principal); G47.33 Obstructive sleep apnea (adult) (pediatric); Z99.89 Dependence on other enabling machines and devices; E66.9 Obesity, unspecified; Z68.37 Body mass index [BMI] 37.0-37.9, adult | CPT/HCPCS: 99212 ==

== ENCOUNTER 2025-02-22 13:05 | Outpatient (AMB) | payer MEDICARE, OTHER, SELFPAY ==
--- NOTE | 2025-02-22 13:05 | MHC.PC.OV ---
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 Accompanied by: Spouse Allergies lisinopril (LISINOPRIL) Allergy (Severe, Unverified 02/22/25 13:05) ANGIOEDEMA latex (LATEX) Allergy (Unknown, Unverified 02/22/25 13:05) UNKNOWN latex Allergy (Unknown, Uncoded 02/22/25 13:05) swelling gets irritated if he leaves bandaid on for a few da Lisinopril-Hydrochlorothiazide Allergy (Unknown, Uncoded 02/22/25 13:05) angioedema Tobacco use date assessed: 02/22/25 Fall risk assessment: No Falls in past year Last assessed Fall Risk: 02/22/25 Dental Screening Dental Screen Date: 02/22/25 Did you have a dental visit in the last 12 months?: Yes Did you have a dental problem in the last 6 months where you did not have access to dental care?: No Was dental information given to patient?: No HPI HPI Comments History of Present Illness Details 70 year old male with history of JESSICA, HTN, BPH presents to to the office for management of chronic conditions and to establish care. JESSICA- compliant with CPAP. Follows with Dr. Green. [employer] Amnesia- hospitalized at [place]. Imaging negative. Very stressful job, decreased job, long work day which was thought to be the cause. Could not remember this or 's [place] [facility]. Memory did return overall, but does now have recollection of the event. HTN- no longer on meds, bp controlled BPH- lowed dose to 0.4mg due to dizziness. Now toleratign well Concerns: After driving a while, changing position got lightheadedness. Lowered flomax to 0.4mg Low back pain, was entering basement, hunched over. Mild in nature overall Health Maintenance: Due for colonoscopy, every 5 years, [address] Villa ROS: General: No fevers, malaise, unintentional weight loss HEENT: No blurred vision, diplopia. No sore throat, nasal congestion, rhinorrhea, sinus pain, ear pain Cardiovascular: No chest pain, palpitations, or leg edema Respiratory: No shortness of breath, wheezing, cough GI: No abdominal pain, nausea, vomiting, diarrhea, constipation, melena, hematochezia : No dysuria, hematuria, increased urinary frequency, decreased urinary output MSK: No myalgia, back pain Neuro: No headaches, weakness, paresthesias Skin: No rashes or lesions EXAM: Constitutional - Awake and Alert, No apparent distress Eyes - PERRL Cardiovascular - S1S2, RRR, No edema Respiratory - Normal lung expansion, Normal respiratory effort, No respiratory distress, CTA bilaterally Extremities - no calf tenderness bilaterally, no swelling Skin - Warm/Dry Neurological - Alert & oriented x3 Psychological - Appropriate affect [facility] Medical History (Updated 02/26/25 @ 17:25 by THOMAS Day) BPH (benign prostatic hyperplasia) Nocturnal hypoxemia JESSICA (obstructive sleep apnea) Obesity (BMI 30-39.9) Surgical History (Updated 02/22/25 @ 13:53 by THOMAS Day) Hx of lithotripsy Social History Housing: House Patient Tobacco Use Status: Never used Tobacco e-Cigarette/Vaping Use: Never Used service: Yes Current occupational status: retired Cognitive needs: No Hearing needs: No Vision needs: Yes (Reading glasses) Questionnaire PHQ-9 Over the last 2 weeks, how often have you been bothered by any of the following problems? 1. Little interest or pleasure in doing things: not at all 2. Feeling down, depressed, or hopeless: not at all 3. Trouble falling or staying asleep, or sleeping too much: not at all 4. Feeling tired or having little energy: not at all 5. Poor appetite or overeating: not at all 6. Feeling bad about yourself - or that you are a failure or have let yourself or your family down: not at all 7. Trouble concentrating on things, such as reading the newspaper or watching television: not at all 8. Moving or speaking so slowly that other people could have noticed. Or the opposite - being so fidgety or restless that you have been moving around a lot more than usual: not at all 9. Thoughts that you would be better off or of hurting yourself in some way: not at all Total score: 0 Source: Developed by Drs. Bret Valverde, Marisa Williamson, Porfirio Weiner and colleagues, with an educational andree from [employer]. Thrive Questionnaire Date Thrive assessed: 02/22/25 I am a: Patient What is your living situation today?: I have a steady place to live Within the past 12 months, did the food you bought not last and you didn't have the money to get more?: Never true Within the past 12 months, did you worry whether your food would run out before you got money to buy more?: Never true Do you have trouble paying for medicines?: No Do you have trouble getting transportation to medical appointments?: No Do you have trouble paying your heating and electricity bill?: No Do you have trouble taking care of your child, family member or friend?: No Do you have trouble with day-to-day activities such as bathing, preparing meals, shopping, managing finances, etc.?: No Are you currently unemployed and looking for a job?: No Are you interested in more education?: No Please select the resources that you would like help with: None THRIVE Score: 0 GILA-7 AMB Questionnaire GILA-7 Date GILA - 7 assessed: 02/22/25 Feeling nervous, anxious, or on edge: 0 = Not at all Not being able to stop or control worryin = Not at all Worrying too much about different things: 0 = Not at all Trouble relaxin = Not at all Being so restless that it is hard to sit still: 0 = Not at all Becoming easily annoyed or irritable: 0 = Not at all Feeling afraid as if something awful might happen: 0 = Not at all Total GILA-7 score (0-4 normal; 5-9 mild; 10-14 moderate; 15-21 severe): 0 Source: Developed by Drs. Bret Valverde, Marisa Williamson, Porfirio Weiner and colleagues, with an educational andree from [employer]. Physical exam (Primary Care) Vital Signs: Last Vital Signs Temp 97.5 F 02/22/25 13:19 Pulse 57 02/22/25 13:19 Resp 16 02/22/25 13:19 BP 122/68 02/22/25 13:19 Pulse Ox 96 02/22/25 13:19 Oxygen Delivery Method Room Air 02/22/25 13:19 BMI result Body Mass Index 28.9 Tobacco/Smoking Status: Tobacco use Status Tobacco use date assessed 02/22/25 02/22/25 13:22 Patient Tobacco Use Status Never used Tobacco 02/22/25 13:06 e-Cigarette/Vaping Use Never Used 02/22/25 13:22 PHQ-9: PHQ-9 Score PHQ-9: Total score 0 02/22/25 13:38 Thrive Assessment: Date of Thrive Assessment Date Thrive assessed 02/22/25 02/22/25 13:22 Coding Level of Care Code New Pt Level 4 (63106) Complex EM visit Add On G2211 Diagnoses HTN (hypertension) I10 HLD (hyperlipidemia) E78.5 JESSICA (obstructive sleep apnea) G47.33 Obesity (BMI 30-39.9) E66.9 BPH (benign prostatic hyperplasia) N40.0 Assessment & Plan Assessment & Plan (1) HTN (hypertension): Code(s): I10 - Essential (primary) hypertension Category: Medical Plan: Controlled. monitor (2) HLD (hyperlipidemia): Code(s): E78.5 - Hyperlipidemia, unspecified Category: Medical Plan: Lipid panel ordered, ASCVD risk score to be calculated (3) JESSICA (obstructive sleep apnea): Comment: HE HAS RATHER SEVERE DEGREE OF OBSTRUCTIVE SLEEP APNEA. IT IS COMPLICATED BY SLEEP-RELATED HYPOVENTILATION AND HYPOXEMIA. AFTER CPAP TITRATION STUDY HE HAS BEEN STARTED ON BILEVEL CPAP WITH PRESSURE SETTING OF 20/16 CM.. THE PRESSURE NOW DOWN TO 16/12 CM HE FEELS MORE COMFORTABLE WITH THIS PRESSURE. HIS COMPLIANCE IS EXCELLENT WITH GOOD RESULTS. Code(s): G47.33 - Obstructive sleep apnea (adult) (pediatric) Category: Medical Plan: Continue cpap and follow up with pulmonology (4) Obesity (BMI 30-39.9): Comment: HE IS GROSSLY OBESE. THIS HAS BEEN GOING ON FOR THE PAST MANY YEARS. NOW THAT HE IS RETIRED HE IS TRYING TO WALK MORE, AND IS TRYING TO LOSE WEIGHT SLOWLY. Code(s): E66.9 - Obesity, unspecified Category: Medical Plan: Continue weight loss efforts (5) BPH (benign prostatic hyperplasia): Code(s): N40.0 - Benign prostatic hyperplasia without lower urinary tract symptoms Category: Medical Plan: continue reduced dose of flomax Plan Follow up in 6 months, labs to be completed following visit Orders: Orders Complete Blood Count Auto Diff 02/22/25 E66.9 - Obesity, unspecified, E78.5 - Hyperlipidemia, unspecified, G47.33 - Obstructive sleep apnea (adult) (pediatric), I10 - Essential (primary) hypertension Lipid Panel 02/22/25 E66.9 - Obesity, unspecified, E78.5 - Hyperlipidemia, unspecified, G47.33 - Obstructive sleep apnea (adult) (pediatric), I10 - Essential (primary) hypertension Liver Panel 02/22/25 E66.9 - Obesity, unspecified, E78.5 - Hyperlipidemia, unspecified, G47.33 - Obstructive sleep apnea (adult) (pediatric), I10 - Essential (primary) hypertension Basic Metabolic Panel 02/22/25 E66.9 - Obesity, unspecified, E78.5 - Hyperlipidemia, unspecified, G47.33 - Obstructive sleep apnea (adult) (pediatric), I10 - Essential (primary) hypertension Hemoglobin A1c 02/22/25 E66.9 - Obesity, unspecified, E78.5 - Hyperlipidemia, unspecified, G47.33 - Obstructive sleep apnea (adult) (pediatric), I10 - Essential (primary) hypertension Prostate Specific Antigen 02/22/25 E66.9 - Obesity, unspecified, E78.5 - Hyperlipidemia, unspecified, G47.33 - Obstructive sleep apnea (adult) (pediatric), I10 - Essential (primary) hypertension Medications: Discontinued losartan Discontinued Reason: Doctor's Order 100 mg PO DAILY 90 tabs 1RF hydrochlorothiazide Discontinued Reason: Doctor's Order 25 mg PO DAILY 90 tabs 1RF
[2025-02-22 13:19] VITALS: BP 122/68; PULSE 57; RESP 16; TEMP 36.4; O2SAT 96; BMI 28.9
== END 2025-02-22 14:09 | disposition home or self-care (01) ==
LOC: HO.HMCHD 13:06
PROVIDERS: PCP Internal Medicine; Visit Provider Physician Assistant
DX: I10 Essential (primary) hypertension (principal); E78.5 Hyperlipidemia, unspecified; G47.33 Obstructive sleep apnea (adult) (pediatric); E66.9 Obesity, unspecified; N40.0 Benign prostatic hyperplasia without lower urinary tract symptoms

== ENCOUNTER → 2025-02-22 13:05 | Outpatient (BNVA) | payer MEDICARE, OTHER, SELFPAY | PROVIDERS: PCP Internal Medicine; Visit Provider Physician Assistant | DX: I10 Essential (primary) hypertension (principal); E78.5 Hyperlipidemia, unspecified; G47.33 Obstructive sleep apnea (adult) (pediatric); E66.9 Obesity, unspecified; Z68.28 Body mass index [BMI] 28.0-28.9, adult; N40.0 Benign prostatic hyperplasia without lower urinary tract symptoms; Z99.89 Dependence on other enabling machines and devices; Z13.30 Encounter for screening examination for mental health and behavioral disorders, unspecified; Z13.39 Encounter for screening examination for other mental health and behavioral disorders | CPT/HCPCS: 96127; 99202 ==

== ENCOUNTER 2025-03-09 10:15 | Outpatient (REF) | payer MEDICARE, OTHER, SELFPAY ==
[2025-03-09 11:25] LABS: MANUAL DIFF FLAG NO
[2025-03-09 11:40] LABS: Hematocrit 46.9 % (42.0-52.0); Hemoglobin 15.7 g/dl (14.0-18.0); Imm Gran Abs Auto 0.01 X10*3/uL (0.00-0.03); Imm Gran Pct Auto 0.2 % (0.0-0.4); Lymphocytes Absolute Auto 1.3 X10*3/uL (1.2-4.9); Mean Corpuscular HGB Conc 33.5 g/dl (31.0-36.0); Mean Corpuscular Hemoglobin 30.8 pg (27.0-33.0); Mean Corpuscular Volume 92.1 fL (80.0-98.0); NRBC Abs Auto 0.000 X10*3/uL (0.0-0.012); NRBC Pct Auto 0.0 /100WBC (0.0-0.2); Platelet Count 157 X10*3/uL (160-400); Red Blood Count 5.09 X10*6/uL (4.60-5.80); White Blood Count 6.1 X10*3/uL (4.8-10.8)
[2025-03-09 11:47] LABS: Hemoglobin A1C 161.2978 umol/L; Total Hemoglobin (HGBA1C) 4038.0015 umol/L
[2025-03-09 12:29] LABS: Alanine Aminotransferase 28 U/L (0-40); Albumin Level 4.4 g/dL (3.5-5.0); Alkaline Phosphatase 79 U/L (39-117); Anion Gap 12 (12-20); Aspartate Amino Transferase 32 U/L (5-37); Blood Urea Nitrogen 19 mg/dL (9-16); Calcium 9.3 mg/dL (8.4-10.2); Carbon Dioxide 27 mmol/L (22-29); Chloride 107 mmol/L (96-108); Cholesterol 171 mg/dL (<200); Estimated Glomerular Filt Rate > 60; HDL Cholesterol 47 mg/dL (>40); Potassium 4.7 mmol/L (3.3-5.1); Sodium 141 mmol/L (135-145); Total Protein 7.1 g/dL (6.5-8.0); Triglycerides 101 mg/dL (<150)
[2025-03-09 12:49] LABS: Prostate Specific Antigen 2.69 ng/mL (<0.05-4.0)
== END 2025-03-09 10:16 | disposition home or self-care (01) ==
LOC: HO.WFDLDS 10:15
PROVIDERS: Visit Provider Physician Assistant
DX: I10 Essential (primary) hypertension (principal); E78.5 Hyperlipidemia, unspecified; E66.9 Obesity, unspecified; G47.33 Obstructive sleep apnea (adult) (pediatric); Z12.5 Encounter for screening for malignant neoplasm of prostate; Z13.1 Encounter for screening for diabetes mellitus
CPT/HCPCS: 36415; 80048; 80061; 80076; 83036; 84153; 85025